=== PATIENT | female | born 1945 | race Caucasian/White ===

== ENCOUNTER → 2017-07-17 | Outpatient (CLI) | payer OTHER ==
[~2017-07-17] VITALS: Ht 152.4 cm; Wt 78.9 kg
[~2017-07-17] MED LIST: ADVAIR HFA115 MCG/21 INH; AMARYL2 MG PO; AMLODIPINE BESYL5 MG PO; ASA5UEC PO; ASPIRIN EC81 M1 PO; ATORVASTATIN CA40 MG PO; BACLOFEN 10MG T10 MG PO; CALCIUM 600 +1 EA11 PO; CARVEDILOL25 MG PO; CELEBREX 200 M200 MG PO; COLACE100 MG PO; COZAAR100 MG PO; CRESTOR10 MG PO; FENTANYL PA25 MCG/HR TP; FERREX 150150 MG PO; FIBER TABS625 MG PO; GLUCOPHAGE500 MG PO; HYDROCHLOROTHIA25 M2 PO; HYDROCODON-ACE1 EAC7 PO; HYDROCODONE-AP1 EA11 PO; HYDROCODONE-AP1 EAC6 PO; LIORESAL 10 MG10 MG PO; LOPRESSOR25 PO; LYRICA 50 MG50 MG PO; MEDROL DOSPAK21 TA1 PO; MELOXICAM7.5 MG PO; METHOCARBAMOL500 M2 PO; MOBIC15 MG PO; NABUMETONE 500500 M1 PO; NORVASC10 MG PO; OMEGA-3 FISH1000 MG PO; OXYCODONE HCL 55 MG PO; PLAVIX 75 MG TA75 MG PO; PRILOSEC 20 MG20 MG PO; SENNA PO; SERTRALINE HCL50 MG PO; SINGULAIR 10 MG10 M1 PO; TRAMADOL 50 MG50 MG PO; VITAMIN D32000 UNIT PO; VITAMIN E400 UNIT PO; VOLTAREN GEL 1100 G1 TOP; XARELTO10 MG PO; ZANTAC 150MG T150 MG PO
--- NOTE | ~2017-07-17 | P ---
[facility] [place] [address] PROCEDURE REPORT Name: FRANCISCO LANDEROS WILL Room #: REG [facility].#: [id number] Admission: 07/17/17 Attend Phys: Jhonny Ríos DO Discharge: Date of : 45 Report #: [id number] THIS REPORT FOR: //name// CC: Jhonny Herr MD DATE OF SERVICE: 07/17/2017 DESCRIPTION OF PROCEDURE: L5-S1 right paramedian epidural steroid injection under fluoroscopic guidance. After obtaining written consent, the patient was taken back to fluoroscopy suite, placed in prone position with pillow under abdomen to decrease lumbar lordosis. Skin overlying lumbosacral area then prepped and draped in aseptic fashion. Lumbar intervertebral spaces identified by AP fluoroscopy. Skin and subcutaneous tissue overlying target site of injection was anesthetized with 3 mL of 1% lidocaine. A 20-gauge 3-1/2-inch Tuohy needle advanced under fluoroscopic guidance towards the epidural space using right paramedian approach. Epidural space identified using loss of resistance to air technique. After negative aspiration for heme or cerebrospinal fluid, 1 mL of Omnipaque was injected. Lumbar epidurogram was confirmed using both AP and lateral fluoroscopy. After negative aspiration for heme or cerebrospinal fluid, 5 mL of a solution containing 2 mL 40 mg per mL, 80 mg total triamcinolone, 3 mL lidocaine 1% injected slowly. Needle retracted prison, flushed with 1 mL of 1% lidocaine and removed. Sterile bandage placed over injection site. No new motor deficits present in the lower extremity following the procedure. The patient tolerated procedure well, carefully escorted to recovery room in stable condition. No apparent complication. After meeting discharge criteria, the patient discharged home. <ELECTRONICALLY SIGNED> By: Jhonny Ríos DO 07/30/17 0908 [id number] Jhonny Ríos DO /nt
--- NOTE | ~2017-07-17 | HPC ---
[facility] [address] [place] [address] PAIN MANAGEMENT CONSULTATION Name: FRANCISCO LANDEROS Room #: REG [facility] M..#: [id number] Admission: 07/17/17 Attend Phys: Jhonny Ríos DO Discharge: Date of : 45 Report #: [id number] THIS REPORT FOR: //name// CC: Jhonny Herr MD DATE OF SERVICE: 07/17/2017 CHIEF COMPLAINT: Low back pain, bilateral buttock and right posterolateral thigh pain. HISTORY OF PRESENT ILLNESS: As you know, the patient is a very pleasant 72-year-old female who returns today in followup visit with low back pain, bilateral buttock and right posterolateral thigh pain. The patient states her pain is sharp, aching, stabbing, throbbing, numbness and tingling; exacerbated with getting up from a chair and sitting back down, turning in bed, coughing and sneezing; improves with medications, rest, cold compresses, heat compresses and previous epidural injections. She returns today in followup visit with pain level of 9/10. States pain began without inciting injury or trauma and progressively worsened. She feels this is a recurrence of her lumbar radicular symptoms. The distribution of symptoms does correlate to prior evaluations. She returns to discuss options for treatment. ALLERGIES: PENICILLIN, CODEINE, ERYTHROMYCIN, BACTRIM, VANCOMYCIN, RACEMIC EPINEPHRINE. CURRENT MEDICATIONS: Atorvastatin, Advair, ranitidine, carvedilol, amlodipine, glimepiride, losartan, montelukast sodium, vitamin E, metformin, sertraline, omeprazole, cholecalciferol, hydrochlorothiazide. SOCIAL HISTORY: The patient denies tobacco, alcohol, IV or illicit drug use. She is retired. retired years ago, accompanied by her who is present in room today. IMAGING: No new imaging available. PHYSICAL EXAMINATION: VITAL SIGNS: Blood pressure 177/64, pulse 83, respiratory rate 16, unlabored. The patient is 95% on room air. Height 5 feet tall, weight 274 pounds, BMI calculated 34. GENERAL: Well-developed, well-nourished, well-hydrated 72-year-old female appearing her stated age. She is placing current pain score 9/10. HEENT: Normocephalic, atraumatic. Pupils equal, round, reactive to light. Extraocular muscles are intact. Sclerae nonicteric without injection. NEUROLOGIC: Cranial nerves 2-12 grossly intact. Speech [place] [address] PAIN MANAGEMENT CONSULTATION Name: FRANCISCO LANDEROS Room #: REG [facility]#: [id number] Admission: 07/17/17 Attend Phys: Jhonny Ríos DO Discharge: Date of : 45 Report #: [id number] deemed an excellent historian. LUNGS: Clear. No wheeze, rhonchi or rales. CARDIOVASCULAR: Regular. No appreciable gallop or rub. ABDOMEN: Soft, mildly obese, normoactive bowel sounds. EXTREMITIES: Show no clubbing, no cyanosis, no edema. MUSCULOSKELETAL: Lower extremity strength equal and symmetrical 5/5. She is intact to light touch from L1 through S2 dermatomes. Seated straight leg raising negative. Supine straight leg raising positive right. Jas test negative. Modified Gaenslen's is positive for axial back pain. Ankle clonus negative. Babinski is negative. ASSESSMENT: 1. Symptomatic lumbar radiculopathy. 2. Lumbosacral spondylosis with radiculopathy. 3. Sacroiliac joint dysfunction. 4. Chronic intractable pain. PLAN: 1. The patient returns today in followup visit with low back pain, right lower extremity pain with paresthesias, consistent with lumbar radiculopathy. The patient and I discussed treatment options for lumbar radicular symptoms including physical therapy, stretching exercise, core strengthening. We discussed medication management, addition of a neuropathic pain medication, low dose opioid for pain control and consistent nonsteroidal anti-inflammatory. We discussed epidural injections under fluoroscopic guidance, spinal cord stimulator therapy and surgical options. After reviewing risks and benefits of all proposed treatment options, the patient chose to begin with an epidural injection. The patient was advised risks and benefits of a lumbar epidural injection. These risks include but are not necessarily limited to bleeding, bruising, infection, worsening pain, no relief of pain, also risk of temporary or permanent muscle weakness, temporary or permanent nerve damage, possible paralysis and . The patient states she understood and wished to proceed. 2. The patient was provided a prescription of methocarbamol 500 mg dose 1 tab p.o. t.i.d., I have given the patient #90, releases of today, 4 weeks from today, 8 weeks from today. The patient was advised not to drive or operate heavy equipment while on this medication as it can cause somnolence, decreased mental acuity, disorientation and confusion. The patient was provided prescription of nabumetone 500 mg dose 1 tab p.o. t.i.d., I have given the patient #90 tablets, 2 refills. The patient was advised to discontinue all other nonsteroidal anti-inflammatories and preference to this medication. She is to watch for dyspepsia, worsening blood pressure, lower extremity edema with its use. 3. The patient was provided prescription of hydrocodone/acetaminophen 7.5/325 one tab p.o. q.8h. p.r.n. for pain, I have given the patient #90 tablets, no [facility] [address] [place] [address] PAIN MANAGEMENT CONSULTATION Name: FRANCISCO LANDEROS Room #: REG [facility].#: [id number] Admission: 07/17/17 Attend Phys: Jhonny Ríos DO Discharge: Date of : 45 Report #: [id number] refills. The patient was advised to take this medication only when pain is intolerable, not to rely on the medication prophylactically. 4. We will see the patient back in followup visit in approximately 30 days. At that time, review efficacy of today's epidural injection to determine next in the series of epidural injections would be necessary. <ELECTRONICALLY SIGNED> By: Jhonny Ríos DO 07/30/17 0906 [id number] Jhonny Ríos DO /nt
[2017-07-17 09:19] VITALS: BP 177/64
== END | disposition home or self-care (01) ==
LOC: PAIN 06:48
DX: M47.27 Other spondylosis with radiculopathy, lumbosacral region (principal); M53.3 Sacrococcygeal disorders, not elsewhere classified; G89.29 Other chronic pain; Z88.0 Allergy status to penicillin; Z88.6 Allergy status to analgesic agent; Z88.8 Allergy status to other drugs, medicaments and biological substances; Z79.899 Other long term (current) drug therapy